=== PATIENT | male | born 1940 | race Caucasian/White ===

== ENCOUNTER 2019-07-17 15:02 | Inpatient (IN) | payer OTHER ==
[~2019-07-17] VITALS: Ht 170.2 cm; Wt 61.2 kg
[2019-07-17 15:20] VITALS: BP_SYST 136
[2019-07-17 17:07] LABS: BASOPHILS # (AUTO) 0.1 K/uL (0.0-0.2); BASOPHILS % (AUTO) 0.5 % (0.0-2.0); EOSINOPHILS # (AUTO) 0.2 K/uL (0.0-0.4); HEMATOCRIT 44.4 % (36-54); HEMOGLOBIN 15.5 g/dL (14.0-18.0); LYMPHOCYTES # (AUTO) 1.5 K/uL (1.0-5.5); LYMPHOCYTES % (AUTO) 15.9 % (20.5-51.5); MEAN CORPUSCULAR HEMOGLOBIN 34 pg (27-31); MEAN CORPUSCULAR HGB CONC 35 % (32-36); MEAN CORPUSCULAR VOLUME 98 fL (79.0-98.0); MONOCYTES # (AUTO) 0.7 K/uL (0.0-1.0); MONOCYTES % (AUTO) 7.7 % (1.7-9.3); NEUTROPHILS # (AUTO) 7.1 K/uL (1.8-7.7); NEUTROPHILS % (AUTO) 73.9 % (40.0-70.0); PLATELET COUNT (AUTO) 183 K/uL (130-430); RED BLOOD CELL COUNT(AUTO) 4.54 MIL/uL (4.2-6.2); RED CELL DISTRIBUTION WIDTH 14.1 % (9.0-15.0); WHITE BLOOD COUNT (AUTO) 9.7 K/uL (4.8-10.8)
[2019-07-17 17:13] LABS: ANION GAP 5 (5-15); CALCIUM 8.6 mg/dL (8.4-11.0); CHLORIDE 107 mmol/L (98-107); CREATININE 0.66 mg/dL (0.55-1.30); GLUCOSE 97 mg/dL (70-99); POTASSIUM 3.9 mmol/L (3.5-5.1); SODIUM SERUM 138 mmol/L (136-145); UREA NITROGEN, BLOOD 14 mg/dL (8-21)
[2019-07-17 17:14] LABS: PROTHROMBIN TIME 10.2 SECS (9.5-12.5)
[2019-07-17 17:17] LABS: ALANINE AMINOTRANSFERASE 26 U/L (12-78); ALBUMIN 3.6 g/dL (3.4-4.8); AMYLASE 44 U/L (0-100); ASPARTATE AMINOTRANSFERASE 17 U/L (10-37); LIPASE 115 U/L (73-393); TOTAL BILIRUBIN 0.4 mg/dL (0.0-1.0)
[2019-07-17 19:42] VITALS: BP_SYST 133
[2019-07-17 20:17] LABS: BILIRUBIN,URINE NEGATIVE (NEGATIVE); BLOOD, URINE 3+ (NEGATIVE); CLARITY/URINE SL CLOUDY (CLEAR); COLOR,URINE RED (YELLOW); GLUCOSE,URINE NEGATIVE (NEGATIVE); KETONES,URINE NEGATIVE (NEGATIVE); LEUKOCYTE ESTERASE ,URINE 3+ (NEGATIVE); NITRITE, URINE POSITIVE (NEGATIVE); PROTEIN URINE 2+ (NEGATIVE)
[2019-07-17 20:36] LABS: BACTERIA,URINE MODERATE /HPF (None Seen); MUCUS,URINE None Seen /LPF (None Seen); RBC,URINE >100 /HPF (0-3); WBC,URINE 50-80 /HPF (0-3)
[2019-07-17] MEDS ORDERED: D5/0.45 NS 1,000 ML IV ONE (21:00)
[2019-07-17] MEDS ORDERED: cefTRIAXone 1 GM IVPB PREMIX 50 ML IV ONE (21:00)
[2019-07-17] MEDS ORDERED: cefTRIAXone 1 GM in D5W 50 ML IV ONE (21:00)
[2019-07-17] MEDS: D5/0.45 NS 1,000 ML IV SCH (21:12)
[2019-07-17] MEDS: INSULIN REGULAR, HUMAN 100 UNITS/ML, 10 ML VIAL (humuLIN R) SUBCUT PRN (21:51)
[2019-07-18 00:28] VITALS: BP_SYST 114
[2019-07-18 09:30] VITALS: BP_SYST 129
[2019-07-18 11:24] VITALS: BP_SYST 131
[2019-07-18 15:18] VITALS: BP_SYST 130
[2019-07-18] MEDS: D5/0.45 NS 1,000 ML IV SCH (17:00)
[2019-07-18] MEDS ORDERED: IOHEXOL 100 ML IV ONE (20:01)
[2019-07-19 02:25] VITALS: BP_SYST 117
[2019-07-19 07:40] VITALS: BP_SYST 128
[2019-07-19 12:41] VITALS: BP_SYST 116
[2019-07-19] MEDS: D5/0.45 NS 1,000 ML IV SCH (13:00)
[2019-07-19 18:07] VITALS: BP_SYST 134
[2019-07-19 19:13] LABS: BASOPHILS % (AUTO) 0.3 % (0.0-2.0); EOSINOPHILS # (AUTO) 0.2 K/uL (0.0-0.4); EOSINOPHILS % (AUTO) 2.5 % (0.0-4.0); HEMATOCRIT 44.5 % (36-54); HEMOGLOBIN 15.5 g/dL (14.0-18.0); LYMPHOCYTES # (AUTO) 1.5 K/uL (1.0-5.5); LYMPHOCYTES % (AUTO) 19.8 % (20.5-51.5); MEAN CORPUSCULAR HEMOGLOBIN 34 pg (27-31); MEAN CORPUSCULAR HGB CONC 35 % (32-36); MEAN CORPUSCULAR VOLUME 97 fL (79.0-98.0); MONOCYTES # (AUTO) 0.7 K/uL (0.0-1.0); NEUTROPHILS % (AUTO) 68.4 % (40.0-70.0); PLATELET COUNT (AUTO) 191 K/uL (130-430); RED BLOOD CELL COUNT(AUTO) 4.56 MIL/uL (4.2-6.2); RED CELL DISTRIBUTION WIDTH 14.3 % (9.0-15.0); WHITE BLOOD COUNT (AUTO) 7.4 K/uL (4.8-10.8)
[2019-07-19 19:19] LABS: ANION GAP 5 (5-15); CALCIUM 8.6 mg/dL (8.4-11.0); CHLORIDE 101 mmol/L (98-107); CREATININE 0.81 mg/dL (0.55-1.30); GLUCOSE 168 mg/dL (70-99); POTASSIUM 4.4 mmol/L (3.5-5.1); SODIUM SERUM 137 mmol/L (136-145); UREA NITROGEN, BLOOD 16 mg/dL (8-21)
[2019-07-19] MEDS: NORMAL SALINE 5 ML DISP.SYRIN IVF SCH (20:52)
[2019-07-20 00:08] VITALS: BP_SYST 124
[2019-07-20] MEDS: cefTRIAXone 1 GM IVPB PREMIX 50 ML IV SCH ×2 (05:57→21:51)
[2019-07-20] MEDS: NORMAL SALINE 5 ML DISP.SYRIN IVF SCH ×3 (05:58→21:52)
[2019-07-20] MEDS ORDERED: cefTRIAXone 1 GM IVPB PREMIX 50 ML IV ONE (06:08)
[2019-07-20 12:49] VITALS: BP_SYST 136
[2019-07-20 16:39] VITALS: BP_SYST 131
[2019-07-20] MEDS: INSULIN REGULAR, HUMAN 100 UNITS/ML, 10 ML VIAL (humuLIN R) SUBCUT PRN (17:57)
[2019-07-20 20:00] VITALS: BP_SYST 117
[2019-07-21 00:24] VITALS: BP_SYST 115
[2019-07-21] MEDS: NORMAL SALINE 5 ML DISP.SYRIN IVF SCH (06:16)
[2019-07-21 08:00] VITALS: BP_SYST 149
[2019-07-21 12:48] VITALS: BP_SYST 102
[2019-07-21 14:42] VITALS: BP_SYST 102
== END 2019-07-21 15:24 | DRG 690 ==
LOC: SED 15:02 → SMU 18:49
PROVIDERS: ADMIT Internal Medicine; ATTEND Internal Medicine
DX: N39.0 Urinary tract infection, site not specified (principal); I69.351 Hemiplegia and hemiparesis following cerebral infarction affecting right dominant side; F03.90 Unspecified dementia, unspecified severity, without behavioral disturbance, psychotic disturbance, mood disturbance, and anxiety; N40.0 Benign prostatic hyperplasia without lower urinary tract symptoms; R27.0 Ataxia, unspecified; R33.9 Retention of urine, unspecified; R16.0 Hepatomegaly, not elsewhere classified; E78.5 Hyperlipidemia, unspecified; E03.9 Hypothyroidism, unspecified; R10.9 Unspecified abdominal pain; K21.9 Gastro-esophageal reflux disease without esophagitis; E11.9 Type 2 diabetes mellitus without complications; Z79.899 Other long term (current) drug therapy
CPT/HCPCS: 36415; 70496; 80048; 80053; 81000-TC; 82150-TC; 82962; 83605; 83690-TC; 85025; 85610-TC; 85730-TC; 87081; 87086; 87186-TC; 99285; J0696; J1815; J7060; Q9967